=== PATIENT | female | born 1995 | race Caucasian/White ===

== ENCOUNTER 2017-01-23 18:34 | Emergency (ER) | payer OTHER, MEDICAID ==
[~2017-01-23] VITALS: Ht 180.3 cm; Wt 83.9 kg
== END 2017-01-23 20:35 | disposition short-term general hospital (02) ==
LOC: ER 18:34
DX: O20.9 Hemorrhage in early pregnancy, unspecified (principal); Z3A.01 Less than 8 weeks gestation of pregnancy; Z91.018 Allergy to other foods; Z87.891 Personal history of nicotine dependence

== ENCOUNTER 2017-03-14 15:55 | Emergency (ER) | payer OTHER, MEDICAID ==
[~2017-03-14] VITALS: Ht 177.8 cm; Wt 81.6 kg
[2017-03-14] MEDS ORDERED: PRENATAL PLUS I1 TAB PO (17:31)
== END 2017-03-14 17:26 | disposition short-term general hospital (02) ==
LOC: ER 15:55 → ULTR 16:00 → ER 17:26
DX: O20.9 Hemorrhage in early pregnancy, unspecified (principal); Z3A.14 14 weeks gestation of pregnancy; Z90.49 Acquired absence of other specified parts of digestive tract